=== PATIENT | male | born 1975 | race Caucasian/White ===

== ENCOUNTER 2019-10-26 15:21 | Inpatient (IN) | payer BC ==
--- NOTE | 2019-10-26 16:15 | RAD ---
Chest one view HISTORY: Altered mental status. Chest pain. FINDINGS: No comparison. Cardiac silhouette is magnified by projection. Pulmonary vasculature is unre markable. Mediastinum is midline. No lobar consolidation or evidence of pneumothorax. youth nutritional monitor leads overlie the chest. IMPRESSION: No active cardiopulmonary abnormalities are demonstrated.
[2019-10-26 16:18] LABS: #Monocytes 0.3 thou/uL (0.11-0.59); #Neutrophils 6.1 thou/uL (1.40-6.50); %Basophils 0.3 % (0.0-1.0); %Eosinophils 0.5 % (0.0-10.0); %Lymphocytes 23.8 % (21.0-51.0); %Monocytes 3.8 % (0.0-10.0); %Neutrophils 71.5 % (42.0-75.0); Mean Corpuscular HGB CONC 34.8 g/dL (32.0-36.0); Mean Corpuscular Volume 86.1 fL (78.0-98.0); Mean Platelet Volume 7.5 fL (7.4-10.4); Platelet Count 218 thou/uL (130-400); RBC Distribution Width 12.3 % (11.5-14.5); Red Blood Cell (RBC) Count 4.99 mill/uL (4.70-6.10); White Blood Cell (WBC) Count 8.5 thou/uL (4.8-10.8)
[2019-10-26 16:25] LABS: PTT 27.7 SEC (22.9-36.1)
[2019-10-26 16:27] LABS: D-Dimer Test Less than 0.27 *mcg/mL (0.27-0.43)
[2019-10-26] MEDS ORDERED: Metoclopramide HCl 10 MG/2 ML VIAL ONE (16:31)
[2019-10-26] MEDS ORDERED: diphenhydrAMINE 50 MG/ML VIAL ONE (16:31)
--- NOTE | 2019-10-26 16:35 | CT ---
CT BRAIN NONCONTRAST: 10/26/2019 4:23 p.m. HISTORY: A 44-year-old male with headache. History of recent stroke last , demonstrated on imaging alexandre dy at outside facility. COMPARISON: None available. FINDINGS: There is an approximately 1 x 0.5 cm focus of moderate hypodensity in the left basal ganglia. Ventric les are normal in size and configuration. No mass effect or midline shift. No acute intra-axial or ex tra-axial hemorrhage or any other extra-axial fluid collection. The visualized upper portion of the r ight maxillary sinus is opacified. Mucosal thickening in adjacent right lower ethmoid air cells. The sphenoid, left ethmoid and frontal sinuses are grossly clear. Bilateral tympanomastoid cavities are g rossly clear. No calvarial fracture. IMPRESSION: 1. Lacunar infarction at left basal ganglia, presumably subacute, especially given history. 2. No acute intracranial hemorrhage or mass effect. 3. Right maxillary sinus mucosal disease, incompletely imaged. JULIO Benson POS: MARCEL
[2019-10-26 16:41] LABS: ALT (SGPT) 54 U/L (8-55); AST (SGOT) 35 U/L (5-34); Albumin 4.7 g/dL (3.5-5.0); Alkaline Phosphatase 97 U/L (40-110); Anion Gap 12 mmol/L (10-20); BUN (Urea Nitrogen) 18 mg/dL (8.9-20.6); Bilirubin, Total 0.8 mg/dL (0.2-1.2); Calc. Creatinine Clearance 0 mL/min (70-130); Calcium 9.6 mg/dL (7.8-10.44); Carbon Dioxide 28 mmol/L (22-29); Chloride 102 mmol/L (98-107); Estimated GFR-MDRD 45; Globulin 2.9 g/dL (2.4-3.5); Glucose 153 mg/dL (70-105); Potassium 3.7 mmol/L (3.5-5.1); Protein, Total 7.6 g/dL (6.0-8.3); Sodium 138 mmol/L (136-145)
[2019-10-26 19:05] VITALS: BMI 35.3
[2019-10-26 19:55] LABS: Troponin I Less than 0.010 ng/mL (< 0.028)
[2019-10-26] MEDS: Lisinopril 20 MG TAB PO SCH (20:42)
[2019-10-26 20:45] LABS: Cardiac Risk 6.4 (Less than 4.5)
[2019-10-26] MEDS ORDERED: Atorvastatin Calcium 40 MG TAB PO SCH (21:00)
--- NOTE | 2019-10-26 22:26 | HP ---
CHIEF COMPLAINT: Blurred vision, left-sided, dizziness, headache, and chest pain. HISTORY OF PRESENT ILLNESS: Mr. Virgie Garcia is a 44-year-old male with past medical history of hypertension, hyperlipidemia, and chronic pain. He was in [place] last , woke up with dizziness and blurred vision in the left side of eye. He waited for some time, got better and he went home, stayed for 2 days, and then he went to the [facility], where he was admitted because of the decreased vision on the left eye and dizziness. He was evaluated, had a CT scan and MRI done and he was told he had a CVA. He also had chest pain, but he did not see any lining cementer there. He was actually transferred from [facility] to [facility], where he has stayed for some time for days. Then, he was trying to get transferred to [facility], which was unsuccessful, so he signed out AMA and his caroline him from [place] to [facility] and presented in the ER. He still has chest pain this morning, which is pressure- like, nonradiating, associated with some dizziness, but no nausea or vomiting. He also has headache. His visual field defect on the left side is still there. The patient underwent CT scan here, which showed subacute lacunar infarct in the basal ganglia. He is admitted for further evaluation and he also received IV fluid 1 L bolus and metoclopramide injection. PAST MEDICAL HISTORY: 1. Hypertension. 2. Hyperlipidemia. 3. Chronic pain. PAST SURGICAL HISTORY: Nothing significant. CURRENT MEDICATIONS: The patient is on; 1. Simvastatin 20 mg daily. 2. Fenofibrate 160 daily. 3. Lisinopril 20 mg b.i.d. 4. Aspirin 81 mg daily. ALLERGIES: NKDA. FAMILY HISTORY: Nothing contributory. SOCIAL HISTORY: The patient lives with family. No history of smoking. No history of alcohol. REVIEW OF SYSTEMS: CARDIOVASCULAR: Has chest pain. No shortness of breath. RESPIRATORY: No fever or cough. GASTROINTESTINAL: No nausea or vomiting. No abdominal pain. CENTRAL NERVOUS SYSTEM: Has headache, dizziness and blurry vision in the left eye. PHYSICAL EXAMINATION: VITAL SIGNS: Temperature 98, pulse 85, respirations 20, blood pressure initially 160/108, now 130/70. HEENT: Head is normocephalic, atraumatic. Pupils are equal and reactive. Nasopharynx is pale and dry. Vision, he has field of vision loss in the left eye. NECK: Supple. No JVD. LUNGS: Bilateral air entry present. No rales, no rhonchi. HEART: S1 and S2 regular. ABDOMEN: Soft. No distention. No tenderness. Normal bowel sounds. RECTAL: No symptoms. NEUROLOGIC: The patient is alert, awake, oriented x3. Motor system, power 4/5 in all extremities. Deep tendon reflex 2+ bilaterally. Plantars downgoing. he has visual field defect in the left eye. LABORATORY DATA: CBC shows WBC 8.5, hemoglobin 15, hematocrit 43, platelets 218. Metabolic panel; sodium 138, potassium 3.7, chloride 102, CO2 28, urea nitrogen 18, creatinine 1.6, glucose 153. CT scan of the brain showed lacunar infarct, left basal ganglia. Chest x-ray negative. ASSESSMENT: 1. Acute cerebrovascular accident with left visual field loss. 2. Subacute infarct in the left basal ganglia. 3. Chest pain, rule out myocardial infarction. 4. Hypertension. 5. Dizziness and weakness. PLAN: 1. Vital signs q.4 hours. 2. Activity as tolerated. 3. Allergies: NKDA. 4. Hep-Lock. 5. Diet: Heart healthy. 6. Aspirin 325 mg daily. 7. Plavix 75 mg daily. 8. Lipitor 40 mg at bedtime. 9. Continue home medications. 10. Neurology consult. 11. MRI of the brain. 12. Stress test. Job ID: [id number] [facility]
[2019-10-26 22:59] LABS: Troponin I 0.027 ng/mL (< 0.028)
[2019-10-26] MEDS ORDERED: traMADol HCl 50 MG TAB PO PRN (23:00)
[2019-10-27 05:36] LABS: Cardiac Risk 5.6 (Less than 4.5)
[2019-10-27 07:12] VITALS: TEMP 98.1
[2019-10-27] MEDS: Lisinopril 20 MG TAB PO SCH (08:58)
[2019-10-27] MEDS ORDERED: Aspirin 325 MG TAB PO SCH (09:00)
[2019-10-27] MEDS ORDERED: Clopidogrel Bisulfate 75 MG TAB PO SCH (09:00)
[2019-10-27] MEDS ORDERED: FLU VACC QS2019-20(6MOS UP)/PF 60 MCG/0.5 ML SYRINGE IM ONE (09:00)
--- NOTE | 2019-10-27 10:12 | CON ---
DATE OF CONSULTATION: 10/27/2019 CONSULTING PHYSICIAN: Hospitalist Services. IMPRESSION: 1. Left basal ganglia stroke. 2. Clinical exam suggest a right occipital lobe stroke. 3. Hypertension. 4. Reported history of carotid disease. PLAN: 1. MRI of the brain. 2. Continue aspirin and statin. 3. Carotid ultrasound. HISTORY OF PRESENT ILLNESS: Mr. Garvin is a 44-year-old man, who was admitted to an [facility] with complaints of left occipital headache and blurred vision on the left. He reportedly had an MRI of the brain, which confirmed two strokes. He had an echocardiogram which reportedly was normal. He was told that he had some carotid disease. He was started on aspirin. He had already been on a statin. He was transferred to [place] initially and then his picked him up and brought him to [place]. He has no past history of stroke prior to this. He was experiencing some substernal chest pain that radiated back to the scapula. He was a bit concerned that it might be cardiac. They came in here for further evaluation of this. Stress test is pending. Blood pressure was 179/111. His laboratory study showed negative troponins. He has otherwise been stable. He continues to complain of a headache and blurred vision on the left. PAST MEDICAL HISTORY: Hypertension, hyperlipidemia. SOCIAL HISTORY: No tobacco use. 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 ALLERGIES: NONE. MEDICATIONS: Reviewed. FAMILY HISTORY: Positive for coronary artery disease. REVIEW OF SYSTEMS: 10 system review of systems otherwise negative. PHYSICAL EXAMINATION: VITAL SIGNS: Blood pressure 142/88, pulse 56, respirations 12, temperature 98.1. HEENT: Pupils equal, conjunctivae clear. Oropharynx clear. Cranium normocephalic and atraumatic. NECK: Supple. No lymphadenopathy. EXTREMITIES: No cyanosis or edema. NEUROLOGIC: He was alert and appropriate. His speech is fluent and clear. Cranial nerve exam showed what appeared to be a left homonymous hemianopsia. His motor exam showed no deficits. There is no tremor or dysmetria. There are no sensory deficits. He can walk independently. LABORATORY STUDIES: Unremarkable CBC, coags, and chemistry panel. His initial cholesterol ratio was 6.4, but it was re-checked today and it was 5.6. DIAGNOSTIC STUDIES: EKG shows a sinus rhythm. CT scan of the brain was reviewed and shows a subacute area of infarction in the left basal ganglia. I do not see any occipital lobe ischemia. SUMMARY: This is a young man with a new stroke. He has been started on aspirin. We need to complete his workup and determine whether if his chest pain is of any significance. Job ID: [id number]
--- NOTE | 2019-10-27 10:52 | ULT ---
BILATERAL CAROTID DUPLEX ULTRASOUND: HISTORY: Strokelike symptoms TECHNIQUE: Grayscale, color-flow and spectral Doppler ultrasound imaging of the extracranial carotid artery syst ems and vertebral arteries was performed bilaterally. FINDINGS: No large amount of echogenic plaque is seen involving the common carotid or internal carotid arteries . The peak systolic velocity in the right ICA measures 64.2 cm/s. The peak systolic velocity in the ri ght CCA measures 69.6 cm/s. The peak systolic velocity in the left ICA measures 103.8 cm/s. The peak systolic velocity in the left CCA measures 89.2 cm/s. The right IC/CC ratio is0.92. The left IC/CC ratio is 1.16. Vertebral flow: antegrade, bilaterally. . IMPRESSION: No hemodynamically significant stenosis of Both ICAs.
[2019-10-27 11:00] VITALS: BP 174/94
--- NOTE | 2019-10-27 11:59 | MRI ---
MRI BRAIN WITH AND WITHOUT CONTRAST: Date: 10/27/19 INDICATION: Follow-up CT 10/26/19 which indicated lacunar infarct in the left basal ganglia. FINDINGS: Ventricles have normal size and position. There are scattered hyperintensities in the deep white kanchan er and basal ganglia consistent with chronic ischemic change. There is gliosis in the left basal gang shad; however, no restricted diffusion. This may represent a focus of old lacunar infarct. Diffusion-weighted images, however, show several scattered foci of restricted diffusion involving the right occipital lobe and posterior right temporal lobe in the distribution of the right posterior ce rebral artery. There are focal areas of cortical involvement indicating acute infarcts in this distri bution. No abnormal enhancement. The intracranial internal carotid arteries and proximal cerebral arteries show flow-voids. The basila r artery is patent. The P1 segment of the right posterior cerebral artery is not well seen and I manuela ot confirm flow-void in this segment of the right [employer]. IMPRESSION: 1. Scattered foci of acute infarct involving the right occipital lobe and posterior right temporal l obe in a distribution of the right posterior cerebral artery. 2. There are chronic ischemic changes in the deep white matter and basal ganglia. No other areas of acute infarct. POS: OFF
[2019-10-27] MEDS ORDERED: Hydrochlorothiazide 25 MG TAB PO SCH (13:30)
[2019-10-27] MEDS ORDERED: HYDROcodone/Acetaminophen 5/325 mg Tablet PO SCH (13:30)
== END 2019-10-27 14:02 | disposition home or self-care (01) | DRG 66 ==
LOC: ERS 15:21 → 2SE 19:01
PROVIDERS: ADMIT Student in an Organized Health Care Education/Training Program; ATTEND Student in an Organized Health Care Education/Training Program
DX: I63.81 Other cerebral infarction due to occlusion or stenosis of small artery (principal); I10 Essential (primary) hypertension; E78.5 Hyperlipidemia, unspecified; G89.29 Other chronic pain; Z79.82 Long term (current) use of aspirin; H53.8 Other visual disturbances; R40.2142 Coma scale, eyes open, spontaneous, at arrival to emergency department; R40.2252 Coma scale, best verbal response, oriented, at arrival to emergency department; R40.2352 Coma scale, best motor response, localizes pain, at arrival to emergency department; I63.89 Other cerebral infarction
CPT/HCPCS: 36415; 70450; 70553; 71045; 80053; 80061; 84484; 85025; 85379; 85610; 85730; 93005; 93880; 96365; 96375; J1200; J2765

== ENCOUNTER 2020-01-04 10:17 | Day surgery (SDC) | payer BC ==
[2020-01-03 13:10] VITALS: BMI 34.9
[2020-01-04] MEDS ORDERED: PROPOFOL 20 ML ONE (11:56)
--- NOTE | 2020-01-04 12:52 | OP ---
DATE OF PROCEDURE: 01/04/2020 PROCEDURE PERFORMED: Transesophageal echocardiogram. PREPROCEDURE DIAGNOSIS: CVA, unknown etiology. POSTPROCEDURE DIAGNOSIS: No significant findings of emboli. DESCRIPTION OF PROCEDURE: The patient was consented for the procedure. Conscious sedation was performed with propofol. The probe was passed easily into esophagus. FINDINGS: Overall LVEF estimated at 55% to 60%. Left ventricle appears to have normal size and function. No mass or vegetation present. The mitral valve is well visualized. No mass or vegetation present. Left atrial appendage also well visualized. Normal velocities were noted with normal contraction. Left atrium also appeared normal without mass or vegetations. The aortic valve has 3 cusps. There is normal excursion. No mass or vegetation present in the aortic valve, LVOT, or aorta. The RA and RV are of normal size and function. The tricuspid valve appears normal. The pulmonary valve appears normal. Mobile study also performed showing no [id number] or [id number] shunt. Aorta with mild atherosclerosis. IMPRESSION: Normal appearing transesophageal echocardiogram with no mass or vegetation present. Job ID: [id number]
== END 2020-01-04 13:14 | disposition home or self-care (01) ==
LOC: CCL 10:17
PROVIDERS: ATTEND Internal Medicine Cardiovascular Disease
PROC: B24BZZ4 Ultrasonography of Heart with Aorta, Transesophageal (ICD-10-PCS; principal; 2020-01-04)
DX: I63.9 Cerebral infarction, unspecified (principal); I10 Essential (primary) hypertension; E78.5 Hyperlipidemia, unspecified; Z79.82 Long term (current) use of aspirin; Z79.899 Other long term (current) drug therapy
CPT/HCPCS: 93312; J2704

== ENCOUNTER 2022-05-15 08:31 | Observation (INO) | payer BC, SELFPAY ==
[2022-05-15 09:00] LABS: #Eosinphils 0.1 thou/uL (0.0-0.7); #Lymphocytes 2.1 thou/uL (1.20-3.40); #Monocytes 0.4 thou/uL (0.11-0.59); #Neutrophils 5.3 thou/uL (1.40-6.50); %Basophils 0.3 % (0.0-1.0); %Eosinophils 1.3 % (0.0-10.0); %Lymphocytes 26.5 % (21.0-51.0); %Monocytes 5.3 % (0.0-10.0); %Neutrophils 66.7 % (42.0-75.0); Hemoglobin 15.2 g/dL (14.0-18.0); Mean Corpuscular HGB CONC 32.7 g/dL (32.0-36.0); Mean Corpuscular Hemoglobin 28.3 pg (27.0-31.0); Mean Corpuscular Volume 86.6 fL (78.0-98.0); Mean Platelet Volume 7.5 fL (7.4-10.4); Platelet Count 217 thou/uL (130-400); RBC Distribution Width 12.7 % (11.5-14.5); Red Blood Cell (RBC) Count 5.37 mill/uL (4.70-6.10); White Blood Cell (WBC) Count 7.9 thou/uL (4.8-10.8)
[2022-05-15 09:21] LABS: ALT (SGPT) 39 U/L (8-55); AST (SGOT) 27 U/L (5-34); Albumin 4.4 g/dL (3.5-5.0); Alkaline Phosphatase 63 U/L (40-110); Anion Gap 14 mmol/L (10-20); BUN (Urea Nitrogen) 25 mg/dL (8.9-20.6); Bilirubin, Total 0.6 mg/dL (0.2-1.2); Calc. Creatinine Clearance 0 mL/min (70-130); Calcium 9.5 mg/dL (7.8-10.44); Carbon Dioxide 26 mmol/L (22-29); Chloride 102 mmol/L (98-107); Globulin 3.1 g/dL (2.4-3.5); Glucose 151 mg/dL (70-105); Potassium 4.1 mmol/L (3.5-5.1); Protein, Total 7.5 g/dL (6.0-8.3); Sodium 138 mmol/L (136-145)
[2022-05-15 09:50] LABS: INR-International Normal Ratio 1.1; Prothrombin Time 13.9 sec (12.0-14.7)
[2022-05-15 09:51] LABS: PTT 28.8 sec (22.9-36.1)
[2022-05-15] MEDS ORDERED: Aspirin Chewable 81 MG TAB ONE (10:48)
[2022-05-15] MEDS ORDERED: Metoclopramide HCl 10 MG/2 ML VIAL ONE (10:48)
[2022-05-15] MEDS ORDERED: diphenhydrAMINE 50 MG/ML VIAL ONE (10:48)
[2022-05-15] MEDS ORDERED: hydrALAZINE 20 MG/ML VIAL SLOW IVP PRN (11:20)
[2022-05-15 12:57] VITALS: BMI 39.3
[2022-05-15] MEDS ORDERED: Acetaminophen 500 MG TAB PO PRN (14:38)
[2022-05-15] MEDS ORDERED: diphenhydrAMINE 50 MG/ML VIAL IVP SCH (15:30)
[2022-05-15] MEDS ORDERED: Prochlorperazine Edisylate 10 MG in Sodium Chloride 0.9% 50 ML IVPB SCH (15:30)
[2022-05-15] MEDS: Metoprolol Tartrate 50 MG TAB PO SCH (19:59)
[2022-05-15] MEDS ORDERED: Atorvastatin Calcium 40 MG TAB PO SCH (21:00)
[2022-05-15] MEDS ORDERED: Atorvastatin Calcium 10 MG TAB PO SCH (21:00)
[2022-05-16 05:06] LABS: Cardiac Risk 6.3 (Less than 4.5)
[2022-05-16] MEDS: Metoprolol Tartrate 50 MG TAB PO SCH (08:19)
[2022-05-16 08:36] LABS: Anion Gap 14 mmol/L (10-20); BUN (Urea Nitrogen) 20 mg/dL (8.9-20.6); Calc. Creatinine Clearance 0 mL/min (70-130); Carbon Dioxide 26 mmol/L (22-29); Chloride 100 mmol/L (98-107); Glucose 112 mg/dL (70-105); Potassium 3.6 mmol/L (3.5-5.1); Sodium 136 mmol/L (136-145)
[2022-05-16] MEDS ORDERED: Aspirin 81 mg Enteric Coated Tablet PO SCH (09:00)
[2022-05-16] MEDS ORDERED: Amlodipine 5 MG TAB PO SCH (09:00)
[2022-05-16] MEDS ORDERED: Aspirin 325 mg Enteric Coated Tablet PO SCH (09:00)
[2022-05-16] MEDS ORDERED: Fenofibrate Nanocrystallized 145 MG TAB PO SCH (09:00)
[2022-05-16] MEDS ORDERED: Lisinopril/Hydrochlorothiazide 20 mg/12.5 mg Tablet PO SCH (09:00)
[2022-05-16] MEDS ORDERED: Lactated Ringer's 1,000 ML IV SCH (11:00)
[2022-05-16 11:29] VITALS: TEMP 97.8
[2022-05-16 16:23] VITALS: BP 154/78
== END 2022-05-16 15:15 | disposition home or self-care (01) ==
LOC: ERS 08:31 → 2SW 11:00
PROVIDERS: ADMIT Internal Medicine; ATTEND Internal Medicine
DX: R51.9 Headache, unspecified (principal); R42 Dizziness and giddiness; E78.1 Pure hyperglyceridemia; I12.9 Hypertensive chronic kidney disease with stage 1 through stage 4 chronic kidney disease, or unspecified chronic kidney disease; E11.22 Type 2 diabetes mellitus with diabetic chronic kidney disease; N18.9 Chronic kidney disease, unspecified; E78.00 Pure hypercholesterolemia, unspecified; I08.1 Rheumatic disorders of both mitral and tricuspid valves; Z86.711 Personal history of pulmonary embolism; Z86.73 Personal history of transient ischemic attack (TIA), and cerebral infarction without residual deficits; Z79.82 Long term (current) use of aspirin; Z79.84 Long term (current) use of oral hypoglycemic drugs; Z79.899 Other long term (current) drug therapy; Z20.822 Contact with and (suspected) exposure to COVID-19
CPT/HCPCS: 36415; 70496; 70498; 70551; 71045; 80048; 80053; 80061; 84484; 85025; 85610; 85730; 93005; 93306; 94760; 96365; 96375; 96376; G0378; J0780; J1200; J2765; J7120; U0003; U0005

== ENCOUNTER 2022-05-22 18:13 | Emergency (ER) | payer BC ==
[2022-05-22 19:21] LABS: #Eosinphils 0.1 thou/uL (0.0-0.7); #Lymphocytes 2.3 thou/uL (1.20-3.40); #Monocytes 0.6 thou/uL (0.11-0.59); #Neutrophils 5.9 thou/uL (1.40-6.50); %Basophils 0.4 % (0.0-1.0); %Eosinophils 1.2 % (0.0-10.0); %Lymphocytes 26.1 % (21.0-51.0); %Monocytes 6.6 % (0.0-10.0); %Neutrophils 65.7 % (42.0-75.0); Hemoglobin 15.1 g/dL (14.0-18.0); Mean Corpuscular HGB CONC 32.3 g/dL (32.0-36.0); Mean Corpuscular Hemoglobin 28.2 pg (27.0-31.0); Mean Corpuscular Volume 87.5 fL (78.0-98.0); Mean Platelet Volume 7.7 fL (7.4-10.4); Platelet Count 229 thou/uL (130-400); Red Blood Cell (RBC) Count 5.34 mill/uL (4.70-6.10); White Blood Cell (WBC) Count 8.9 thou/uL (4.8-10.8)
[2022-05-22 20:36] LABS: ALT (SGPT) 41 U/L (8-55); AST (SGOT) 23 U/L (5-34); Albumin 4.5 g/dL (3.5-5.0); Alkaline Phosphatase 66 U/L (40-110); Anion Gap 17 mmol/L (10-20); BUN (Urea Nitrogen) 23 mg/dL (8.9-20.6); Bilirubin, Total 0.5 mg/dL (0.2-1.2); Calc. Creatinine Clearance 0 mL/min (70-130); Calcium 9.6 mg/dL (7.8-10.44); Carbon Dioxide 21 mmol/L (22-29); Chloride 103 mmol/L (98-107); Globulin 3.2 g/dL (2.4-3.5); Glucose 139 mg/dL (70-105); Lipase 56 U/L (8-78); Potassium 3.8 mmol/L (3.5-5.1); Protein, Total 7.7 g/dL (6.0-8.3); Sodium 137 mmol/L (136-145)
== END 2022-05-22 23:01 | disposition left against medical advice (07) ==
LOC: ERS 18:13
DX: Z53.21 Procedure and treatment not carried out due to patient leaving prior to being seen by health care provider (principal)
CPT/HCPCS: 36415; 71045; 80053; 83690; 84484; 85025; 93005

== ENCOUNTER 2022-05-23 08:08 | Emergency (ER) | payer BC ==
[2022-05-23 09:18] LABS: #Eosinphils 0.1 thou/uL (0.0-0.7); #Lymphocytes 1.9 thou/uL (1.20-3.40); #Monocytes 0.4 thou/uL (0.11-0.59); #Neutrophils 4.8 thou/uL (1.40-6.50); %Basophils 0.6 % (0.0-1.0); %Eosinophils 1.3 % (0.0-10.0); %Lymphocytes 25.9 % (21.0-51.0); %Monocytes 5.7 % (0.0-10.0); %Neutrophils 66.4 % (42.0-75.0); Hemoglobin 15.5 g/dL (14.0-18.0); Mean Corpuscular HGB CONC 33.2 g/dL (32.0-36.0); Mean Corpuscular Hemoglobin 28.8 pg (27.0-31.0); Mean Corpuscular Volume 86.7 fL (78.0-98.0); Mean Platelet Volume 7.7 fL (7.4-10.4); Platelet Count 216 thou/uL (130-400); RBC Distribution Width 12.9 % (11.5-14.5); Red Blood Cell (RBC) Count 5.39 mill/uL (4.70-6.10); White Blood Cell (WBC) Count 7.3 thou/uL (4.8-10.8)
[2022-05-23] MEDS ORDERED: Ketorolac Tromethamine 30 MG/ML VIAL ONE (09:27)
[2022-05-23] MEDS ORDERED: diphenhydrAMINE 50 MG/ML VIAL ONE (09:27)
[2022-05-23] MEDS ORDERED: Acetaminophen 500 MG TAB ONE (09:28)
[2022-05-23] MEDS ORDERED: Metoclopramide HCl 10 MG/2 ML VIAL ONE (09:28)
[2022-05-23 09:39] LABS: ALT (SGPT) 40 U/L (8-55); AST (SGOT) 23 U/L (5-34); Albumin 4.5 g/dL (3.5-5.0); Alkaline Phosphatase 66 U/L (40-110); Anion Gap 15 mmol/L (10-20); BUN (Urea Nitrogen) 26 mg/dL (8.9-20.6); Bilirubin, Total 0.5 mg/dL (0.2-1.2); CRP (Inflammatory) 0.88 mg/dL (= or < 0.5); Calc. Creatinine Clearance 0 mL/min (70-130); Calcium 9.7 mg/dL (7.8-10.44); Carbon Dioxide 29 mmol/L (22-29); Chloride 100 mmol/L (98-107); Globulin 3.1 g/dL (2.4-3.5); Glucose 146 mg/dL (70-105); Potassium 3.9 mmol/L (3.5-5.1); Protein, Total 7.6 g/dL (6.0-8.3); Sodium 140 mmol/L (136-145)
== END 2022-05-23 12:15 | disposition home or self-care (01) ==
LOC: ERS 08:08
DX: R51.9 Headache, unspecified (principal); E11.9 Type 2 diabetes mellitus without complications; I10 Essential (primary) hypertension; Z79.899 Other long term (current) drug therapy; Z79.84 Long term (current) use of oral hypoglycemic drugs; Z79.82 Long term (current) use of aspirin
CPT/HCPCS: 80053; 83735; 84484; 85025; 85652; 86140; 93005; 96374; 96375; J1200; J1885; J2765

== ENCOUNTER 2022-05-28 09:28 | Outpatient (CLI) | payer BC | END 2022-05-28 09:29 | disposition home or self-care (01) | LOC: ULT 09:28 | PROVIDERS: ATTEND Internal Medicine Nephrology | DX: N18.2 Chronic kidney disease, stage 2 (mild) (principal) | CPT/HCPCS: 76770; 93975 ==

== ENCOUNTER 2022-06-18 14:48 | Outpatient (CLI) | payer BC | END 2022-06-18 14:49 | disposition home or self-care (01) | LOC: CTENTCT 14:48 | PROVIDERS: ATTEND Student in an Organized Health Care Education/Training Program | DX: J32.9 Chronic sinusitis, unspecified (principal) | CPT/HCPCS: 70486 ==

== ENCOUNTER 2022-08-19 05:45 | Day surgery (SDC) | payer BC ==
[2022-08-18 14:31] VITALS: BMI 39.1
[2022-08-19] MEDS ORDERED: Oxymetazoline HCl 0.05% (30 ML BOT) ONE ×2 (06:20→06:42)
[2022-08-19] MEDS ORDERED: Midazolam HCl 2 mg/2 ml Vial ONE ×2 (06:33→07:26)
[2022-08-19] MEDS ORDERED: fentaNYL Citrate/PF 100 MCG/2 ML SYRINGE ONE (06:34)
[2022-08-19] MEDS ORDERED: HYDROmorphone 0.5 MG/0.5 ML SYRINGE ONE (06:34)
[2022-08-19] MEDS ORDERED: EPINEPHrine 1 MG/ML AMP ONE (06:42)
[2022-08-19] MEDS ORDERED: Bacitracin Zinc Ointment 30 gm TUBE ONE (06:42)
[2022-08-19] MEDS ORDERED: Lidocaine 1% (PF) 30 ML VIAL ONE (06:42)
[2022-08-19] MEDS ORDERED: CEFAZOLIN 2 GM VIAL ONE (07:25)
[2022-08-19] MEDS ORDERED: Sodium Chloride 0.9% 100 ML ONE (07:25)
[2022-08-19] MEDS ORDERED: Famotidine/PF 20 mg/2ml Vial ONE (07:27)
[2022-08-19] MEDS ORDERED: Scopolamine 1.5 mg/72 hour Patch ONE (07:27)
[2022-08-19 07:33] LABS: #Eosinphils 0.1 thou/uL (0.0-0.7); #Lymphocytes 2.1 thou/uL (1.20-3.40); #Monocytes 0.4 thou/uL (0.11-0.59); #Neutrophils 4.2 thou/uL (1.40-6.50); %Basophils 0.6 % (0.0-1.0); %Lymphocytes 31.2 % (21.0-51.0); %Monocytes 5.2 % (0.0-10.0); %Neutrophils 61.9 % (42.0-75.0); Hemoglobin 13.8 g/dL (14.0-18.0); Mean Corpuscular HGB CONC 32.1 g/dL (32.0-36.0); Mean Corpuscular Hemoglobin 28.9 pg (27.0-31.0); Mean Platelet Volume 7.6 fL (7.4-10.4); Platelet Count 253 thou/uL (130-400); RBC Distribution Width 13.1 % (11.5-14.5); Red Blood Cell (RBC) Count 4.79 mill/uL (4.70-6.10); White Blood Cell (WBC) Count 6.8 thou/uL (4.8-10.8)
[2022-08-19] MEDS ORDERED: Ondansetron PF 4 MG/2 ML Vial ONE (07:52)
[2022-08-19] MEDS ORDERED: Dexamethasone 20 MG/5 ML VIAL ONE (07:52)
[2022-08-19] MEDS ORDERED: Lidocaine 1% MPF 2 ML VIAL ONE (07:52)
[2022-08-19] MEDS ORDERED: Rocuronium Bromide 10 MG/ML (10ML VIAL) ONE (07:52)
[2022-08-19] MEDS ORDERED: Phenylephrine 10 MG/ML VIAL ONE (07:52)
[2022-08-19] MEDS ORDERED: PROPOFOL 200 MG/20 ML VIAL ONE (07:52)
[2022-08-19 07:57] LABS: Anion Gap 15 mmol/L (10-20); BUN (Urea Nitrogen) 18 mg/dL (8.9-20.6); Calc. Creatinine Clearance 93 mL/min (70-130); Calcium 9.4 mg/dL (7.8-10.44); Carbon Dioxide 25 mmol/L (22-29); Chloride 102 mmol/L (98-107); Estimated GFR 53; Glucose 161 mg/dL (70-105); Potassium 3.8 mmol/L (3.5-5.1); Sodium 138 mmol/L (136-145)
[2022-08-19] MEDS ORDERED: SUGAMMADEX SODIUM 200 MG/2 ML VIAL ONE (09:12)
[2022-08-19] MEDS ORDERED: Triamcinolone 40 MG/ML VIAL ONE (09:42)
[2022-08-19] MEDS ORDERED: Fentanyl 100 MCG/2 ML VIAL ONE (11:06)
[2022-08-19] MEDS ORDERED: HYDROcodone/Acetaminophen 5/325 mg Tablet ONE (11:59)
== END 2022-08-19 13:10 | disposition home or self-care (01) ==
LOC: SDC 05:45
PROVIDERS: ATTEND Student in an Organized Health Care Education/Training Program
PROC: 8E09XBZ Computer Assisted Procedure of Head and Neck Region (ICD-10-PCS; principal; 2022-08-19)
PROC: 09BX8ZZ Excision of Left Sphenoid Sinus, Via Natural or Artificial Opening Endoscopic (ICD-10-PCS; principal; 2022-08-19)
PROC: 09BQ8ZZ Excision of Right Maxillary Sinus, Via Natural or Artificial Opening Endoscopic (ICD-10-PCS; principal; 2022-08-19)
PROC: 09BT8ZZ Excision of Left Frontal Sinus, Via Natural or Artificial Opening Endoscopic (ICD-10-PCS; principal; 2022-08-19)
PROC: 09SM0ZZ Reposition Nasal Septum, Open Approach (ICD-10-PCS; principal; 2022-08-19)
PROC: 09TV8ZZ Resection of Left Ethmoid Sinus, Via Natural or Artificial Opening Endoscopic (ICD-10-PCS; principal; 2022-08-19)
PROC: 09TL0ZZ Resection of Nasal Turbinate, Open Approach (ICD-10-PCS; principal; 2022-08-19)
PROC: 09QK0ZZ Repair Nasal Mucosa and Soft Tissue, Open Approach (ICD-10-PCS; principal; 2022-08-19)
PROC: 09BR8ZZ Excision of Left Maxillary Sinus, Via Natural or Artificial Opening Endoscopic (ICD-10-PCS; principal; 2022-08-19)
PROC: 09TU8ZZ Resection of Right Ethmoid Sinus, Via Natural or Artificial Opening Endoscopic (ICD-10-PCS; principal; 2022-08-19)
PROC: 09BW8ZZ Excision of Right Sphenoid Sinus, Via Natural or Artificial Opening Endoscopic (ICD-10-PCS; principal; 2022-08-19)
PROC: 09BS8ZZ Excision of Right Frontal Sinus, Via Natural or Artificial Opening Endoscopic (ICD-10-PCS; principal; 2022-08-19)
DX: J34.89 Other specified disorders of nose and nasal sinuses (principal); J32.4 Chronic pansinusitis; J34.2 Deviated nasal septum; J34.3 Hypertrophy of nasal turbinates; J33.8 Other polyp of sinus; J30.89 Other allergic rhinitis; B48.8 Other specified mycoses; E11.9 Type 2 diabetes mellitus without complications; Z79.82 Long term (current) use of aspirin; Z79.84 Long term (current) use of oral hypoglycemic drugs; Z79.899 Other long term (current) drug therapy; Z20.822 Contact with and (suspected) exposure to COVID-19
CPT/HCPCS: 80048; 85025; 87811; 93005; 93010; J0171; J0690; J1100; J1170; J2001; J2250; J2370; J2405; J2704; J3010; J3301; J3490; S0028

== ENCOUNTER 2022-10-01 12:43 | Outpatient (CLI) | payer BC | END 2022-10-01 12:44 | disposition home or self-care (01) | LOC: BICULT 12:43 | PROVIDERS: ATTEND Registered Nurse Community Health | DX: M79.18 Myalgia, other site (principal); S30.0XXA Contusion of lower back and pelvis, initial encounter | CPT/HCPCS: 76999 ==